=== PATIENT | female | born 2000 ===

== ENCOUNTER 2024-05-02 12:29 | Outpatient (REF) | payer BC, SELFPAY ==
[2024-05-02 14:34] LABS: HCT 38.5 % (36.0-46.0); HGB 13.4 g/dL (11.2-15.7); MCHC 34.8 % (32.0-36.0); MCV 86 fL (80-95); Platelet Count 412 10^3/uL (130-400); RBC 4.47 10^6/uL (3.93-5.22); RDW 12.1 % (11.7-14.6); RDW-SD 38.4 fL; WBC 7.53 10^3/uL (4.4-10.8)
[2024-05-02 17:19] LABS: ALT 19 U/L (14-59); AST 15 U/L (15-37); Alkaline Phosphatase 69 U/L (46-116); Anion Gap 8.5 mmol/L (3-11); BUN 9 mg/dL (7-18); Bilirubin, Total 0.39 mg/dL (0.2-1.0); CO2 27.5 mmol/L (21.0-32.0); CREATININE 0.9 mg/dL (0.55-1.02); Calcium 9.4 mg/dL (8.5-10.1); Calculated LDL 117 mg/dL (<100); Chloride 106 mmol/L (98-107); Cholesterol 183 mg/dL (<200); Estimated GFR 92.12 (mL/min/1.73m2); Glucose 85 mg/dL (74-106); HDL Cholesterol 47 mg/dL (40-60); Potassium 4.2 mmol/L (3.5-5.1); Sodium 142 mmol/L (136-145); TSH 2.82 uIU/mL (0.36-3.74); Total Protein 7.8 g/dL (6.4-8.2); Triglyceride 99 mg/dL (<150)
== END 2024-05-02 12:30 | disposition home or self-care (01) ==
LOC: NCHCN 12:29
PROVIDERS: Visit Provider Physician Assistant
DX: D68.9 Coagulation defect, unspecified (principal); Z13.220 Encounter for screening for lipoid disorders; F41.9 Anxiety disorder, unspecified
CPT/HCPCS: 80053; 80061; 82533; 85027; 84443